=== PATIENT | male | born 1995 | race Caucasian/White ===

== ENCOUNTER 2020-11-29 11:50 | Emergency (ER) | payer MEDICAID, OTHER ==
[2020-11-29 12:53] LABS: CORONAVIRUS COVID-19 NAA NEGATIVE (NEGATIVE)
[2020-11-29 12:57] VITALS: BP 125/81; PULSE 110
--- NOTE | 2020-11-29 13:01 | CR ---
[id number] RAD/RAD Chest PA or AP 1V EXAM: RAD Chest PA or AP 1V INDICATION: SHORT OF BREATH. COMPARISON: 2013. DISCUSSION/IMPRESSION: Cardiomediastinal silhouette is normal in size and contour. Lungs are clear. No pleural effusion or pneumothorax. Dane Goodman MD 11/29/20 1300 Thank you for allowing us to participate in the care of your patient.
[2020-11-29] MEDS: Take Home: Doxycycline 100 MG Tab, 4 Tab Pack PO ONE (13:07)
[2020-11-29] MEDS: predniSONE 20 MG Tab PO ONE (13:08)
[2020-11-29] MEDS: Take Home: Albuterol 18 GM Inhaler, 1 Inhaler Pack INH PRN (13:08)
--- NOTE | 2020-11-30 04:39 | EDM.PDOC ---
ED HPI GENERAL MEDICAL PROBLEM - General Chief Complaint: Respiratory Problem Stated Complaint: COUGH Time Seen by Provider: 11/29/20 11:59 Source of Information: Reports: Patient History Limitations: Reports: No Limitations - History of Present Illness INITIAL COMMENTS - FREE TEXT/NARRATIVE: Pt. presents to ER with complaints of cough and chest congestion. He states that he was recently seen in clinic for this. He was tested for covid and influenza at that time which were negative. He continues to experience cough. It is non- productive. Denies any fever or chills. He is a 20 pack year smoker and has a history of asthma. He has been taking some OTC cough medication but this has not helped. Pt. denies any nausea or vomiting. No chest pain or shortness of breath. No hemoptysis. He complains of congestion. 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 [No Known Home Meds] 11/29/20 [History] Past Medical History Respiratory History: Reports: Asthma Social & Family History - Tobacco Use Tobacco Use Status *Q: Current Every Day Tobacco User Years of Tobacco use: 20 Packs/Tins Daily: 1 - Recreational Drug Use Recreational Drug Use: Yes Recreational Drug Type: Reports: Marijuana/Hashish Recreational Drug Use Frequency: Not Used In Over 6 Months - Living Situation & Occupation Living situation: Reports: Single ED ROS GENERAL - Review of Systems Review Of Systems: See Below Constitutional: Reports: No Symptoms HEENT: Reports: No Symptoms Respiratory: Reports: Cough Cardiovascular: Reports: No Symptoms Endocrine: Reports: No Symptoms GI/Abdominal: Reports: No Symptoms : Reports: No Symptoms Musculoskeletal: Reports: No Symptoms Skin: Reports: No Symptoms Neurological: Reports: No Symptoms Psychiatric: Reports: No Symptoms Hematologic/Lymphatic: Reports: No Symptoms Immunologic: Reports: No Symptoms ED EXAM, GENERAL - Physical Exam Exam: See Below Exam Limited By: No Limitations General Appearance: Alert, WD/WN, No Apparent Distress Eye Exam: Bilateral Eye: EOMI, PERRL Nose: Normal Inspection, Normal Mucosa Throat/Mouth: Normal Inspection, Normal Lips, Normal Teeth, Normal Gums, Normal Oropharynx, Normal Voice, No Airway Compromise Head: Atraumatic, Normocephalic Neck: Normal Inspection, Supple, Non-Tender, Full Range of Motion Respiratory/Chest: No Respiratory Distress, No Accessory Muscle Use, Decreased Breath Sounds Cardiovascular: Normal Peripheral Pulses, Regular Rate, Rhythm, No Edema, No Gallop, No JVD, No Murmur, No Rub Course - Vital Signs Last Recorded V/S: Last Vital Signs Temp 36.9 C 11/29/20 12:50 Pulse 110 H 11/29/20 12:50 Resp 16 11/29/20 12:50 BP 125/81 11/29/20 12:50 Pulse Ox 97 11/29/20 12:50 - Orders/Labs/Meds Labs: Laboratory Tests 11/29/20 Range/Units 12:08 Influenza Type A RNA Negative (NEGATIVE) Influenza Type B RNA Negative (NEGATIVE) SARS-CoV-2 RNA ([facility]AN) Negative (NEGATIVE) Meds: Medications Discontinued Medications Generic Name Dose Route Start Last Admin Trade Name Adriel PRN Reason Stop Dose Admin Albuterol 1 packet 11/29/20 12:58 11/29/20 13:08 Take Home: Albuterol 18 Gm Inhaler, 1 Inhaler Pack INH 1 inhaler Q4H PRN Administration Shortness of Breath Doxycycline Monohydrate 1 packet 11/29/20 12:58 11/29/20 13:07 Take Home: Doxycycline 100 Mg Tab, 4 Tab Pack PO 11/29/20 12:59 1 packet ONETIME ONE Administration Prednisone 40 mg 11/29/20 12:57 11/29/20 13:08 Prednisone 20 Mg Tab PO 11/29/20 12:58 40 mg ONETIME ONE Administration - Radiology Interpretation Free Text/Narrative:: chest x ray obtained. No obvious infiltrate noted. Departure - Departure Time of Disposition: 14:00 Disposition: Home, Self-Care 01 Clinical Impression: Exacerbation of asthma - Discharge Information Instructions: Chronic Obstructive Pulmonary Disease Exacerbation, [id number], Albuterol inhalation aerosol, Doxycycline tablets or capsules, Prednisone tablets Referrals: PCP,None [Primary Care Provider] - Forms: ED Department Discharge Additional Instructions: Home to rest. Off work today and tomorrow. Doxycycline 100mg 1 tab twice daily until gone Prednisone 20mg 1 tab twice daily until gone Albuterol inhaler 2 puffs every 4-6 hours as needed for cough/trouble breathing Follow-up in clinic in 10-14 days Sepsis Event Note (ED) - Evaluation Sepsis Screening Result: No Definite Risk - Problem List Review Problem List Initiated/Reviewed/Updated: Yes - Assessment/Plan Plan: Pt. was discharged. He was started on a course of prednisone and doxycycline. His chest xray was negative for infiltrate but he does have some hilar scarring and some hyperinflation, concerning for COPD. Advised to stop smoking cigarettes and marijuana. Advised to recheck in clinic in 10-14 days. Return to ER if not gradually improving.
== END 2020-11-29 13:17 | disposition home or self-care (01) ==
LOC: VM.ED 11:50
DX: J45.901 Unspecified asthma with (acute) exacerbation (principal); Z88.1 Allergy status to other antibiotic agents; Z72.0 Tobacco use; Z20.822 Contact with and (suspected) exposure to COVID-19
CPT/HCPCS: 0240U; 71045; 99283; 99284-25; A9270-GY; J7512